=== PATIENT | male | born 1980 | race Two or more races ===

== ENCOUNTER 2024-04-01 10:59 | Emergency (ER) | payer MEDICAID, SELFPAY ==
[2024-04-01 11:10] VITALS: BP 132/86; PULSE 74; O2SAT 97
[2024-04-01 11:13] VITALS: BP 151/104; PULSE 78; RESP 18; TEMP 36.9; O2SAT 94; BMI 41.3
--- NOTE | 2024-04-01 11:28 | ED_ITS ---
HPI - General Adult General Chief complaint: Psychiatric Symptoms Stated complaint: SI NO PLAN Time Seen by Provider: 04/01/24 11:27 Source: patient and EMS Mode of arrival: EMS Limitations: no limitations History of Present Illness ED Provider: Hanny Dey PA-C HPI narrative: Patient is a 43 year old assigned male at with a history of depression, anxiety, and PTSD presenting to the emergency department today with suicidal and homicidal ideation. Patient states that yesterday he made comments about hurting himself including by overdose and possibly hurting his brother. Patient states that he does not have those thoughts / feelings today. Patient denies any dizziness, lightheadedness, abdominal pain, nausea, vomiting, fever, chills, blurry vision, double vision, loss of vision, chest pain, difficulty breathing, shortness of breath, back pain, night sweats, pain with urination, increased urinary frequency, increased urinary urgency, blood in his urine or stool, syncope or a near syncopal episode, recent trauma or falls, bowel incontinence, bladder incontinence, or any other complaints at this time. Relieving factors: none Exacerbating factors: none Associated symptoms: denies other symptoms Treatments prior to arrival: none Related Data Home Medications ?Medication ?Instructions ?Recorded ?Confirmed atorvastatin 10 mg tablet 10 mg PO BEDTIME 04/01/24 04/01/24 clonazepam 1 mg tablet 1 mg PO TID 04/01/24 04/01/24 emtricitabine 200 mg-tenofovir 1 tab PO DAILY 04/01/24 04/01/24 disoproxil fumarate 300 mg tablet fluoxetine 20 mg capsule 60 mg PO DAILY 04/01/24 04/01/24 pantoprazole 40 mg tablet,delayed 40 mg PO QAM 04/01/24 04/01/24 release quetiapine 25 mg tablet 25 mg PO BEDTIME 04/01/24 04/01/24 Allergies Allergy/AdvReac Type Severity Reaction Status Date / Time No Known Allergies Allergy Verified 04/01/24 11:18 Review of Systems 2 Constitutional: Constitutional: Reports no additional constitutional complaints, Denies chills, Denies fever(s) and Denies night sweats Eyes: Eyes: Reports no additional eye complaints, Denies blurry vision, Denies change in vision, Denies diplopia, Denies eye discharge, Denies loss of vision and Denies eye pain ENT: Denies dizziness Cardiovascular: Cardiovascular: Reports no additional cardiovascular complaints, Denies chest pain, Denies lightheadedness, Denies Loss of Consciousness and Denies dyspnea Respiratory: Respiratory: Reports no additional respiratory complaints and Denies dyspnea Gastrointestinal: Gastrointestinal: Reports no additional gastrointestinal complaints, Denies abdominal pain, Denies melena, Denies hematochezia, Denies change in bowel habits and Denies change in stool character Genitourinary: Genitourinary: Reports no additional male genitourinary complaints, Denies hematuria, Denies oliguria, Denies difficulty urinating, Denies dysuria, Denies urinary frequency, Denies urinary hesitancy, Denies urinary incontinence and Denies urinary urgency Musculoskeletal: Musculoskeletal: Reports no additional musculoskeletal complaints, Denies numbness and Denies tingling Neurologic: Denies dizziness, Denies loss of vision, Denies numbness and Denies tingling Psychiatric: Psychiatric: Reports homicidal ideation (now resolved) and Reports suicidal ideation (now resolved) Endocrine: Endocrine: Reports no additional endocrine complaints Hematologic/Lymphatic: Hematologic/Lymphatic: Reports no additional hematologic/lymphatic complaints Allergic/Immunologic: Allergic/Immunologic: Reports no additional allergic/immunologic complaints [facility] Past Medical History Attestation statement: The following information was validated with the patient. Source: old records reviewed and nursing notes reviewed Social History Social History Smoked in Last 30 Days: Yes Use of substances other than those prescribed or required for medical reasons: Yes Substance Use Type: Marijuana Advance Directives: No Do you have a plan to hurt others: Vague Physical Exam ED Vital Signs: Vital Signs - 24 hr 04/01/24 11:13 04/01/24 16:56 04/02/24 04:39 Temperature 98.4 F 97.0 F Pulse Rate 78 70 Respiratory Rate 18 18 18 Blood Pressure 151/104 H 116/72 Pulse Oximetry 94 95 Oxygen Delivery Method Room Air Room Air Room Air BMI result Body Mass Index 41.3 Const General: cooperative, no acute distress, alert and awake Nutritional Appearance: well nourished Orientation/consciousness: patient oriented x3 Limitations: no limitations HENMT Head: Yes normal to inspection and Yes atraumatic Ears: hearing grossly normal bilaterally and external ears normal General nose exam: Normal external nose present, no nasal discharge noted and no epistaxis Face and sinus: Yes normal facial exam, No abrasion and No laceration Mouth: Normal oral and palatal mucosa present, no drooling and no muffled voice Eyes General: appearance normal, both eyes and all related structures Periorbital: periorbital findings normal Eyelids: Yes eyelids normal Conjunctivae: conjunctivae normal Pupils: Equal, round and reactive pupils present EOM: EOMs intact bilaterally Neck Neck: Yes normal visual inspection, Yes full ROM and Yes no lymphadenopathy Chest Chest palpation & inspection: normal inspection of the chest Resp Effort & Inspection: normal respiratory effort and able to speak in complete sentences GI Inspection: Yes normal to inspection Neuro General: patient oriented x3 and moves all extremities Cranial nerves: Yes Equal, round and reactive pupils present Cognition (Neuro): normal cognition Extrem General: Yes normal to inspection, Yes full ROM and Yes capillary refill normal Psych Appearance: grossly normal Mental Status: mental status grossly normal Affect: normal affect Attitude: cooperative Thought process: Normal thought process present Thought content: Normal thought content present Insight: Good insight present (Psych) Medications Administered Generic Name Dose Route Start Last Admin Trade Name Freq PRN Reason Stop Dose Admin Atorvastatin Calcium 10 mg 04/01/24 21:00 04/01/24 20:48 Atorvastatin Calcium 10 Mg Tablet PO 10 mg BEDTIME BRADY Administration Clonazepam 1 mg 04/01/24 21:00 04/01/24 20:48 Clonazepam 1 Mg Tablet PO 1 mg TID BRADY Administration Quetiapine Fumarate 25 mg 04/01/24 21:00 04/01/24 20:48 Quetiapine Fumarate 25 Mg Tablet PO 25 mg BEDTIME BRADY Administration Discontinued Medications Generic Name Dose Route Start Last Admin Trade Name Freq PRN Reason Stop Dose Admin Diphenhydramine HCl 25 mg 04/01/24 14:05 04/01/24 14:08 Diphenhydramine Hcl 25 Mg Capsule PO 04/01/24 14:06 25 mg ONCE ONE Administration Lorazepam 1 mg 04/01/24 12:30 04/01/24 12:34 Lorazepam 1 Mg Tablet PO 04/01/24 12:31 1 mg ONCE ONE Administration Olanzapine 5 mg 04/01/24 12:30 04/01/24 12:34 Olanzapine 5 Mg Tablet PO 04/01/24 12:31 5 mg ONCE ONE Administration Medical Decision Making Medical Decision Making MDM Narrative: Patient is a 43 year old assigned male at with a history of PTSD, depression, and anxiety presenting to the emergency department today with HI and SI thoughts yesterday. Patient's physical exam was unremarkable. Patient's blood work was unremarkable. I explained my physical exam findings as well as all test results to the patient. I answered all questions asked by the patient. Patient was given PO Benadryl for his itchy mosquito bites. Patient's disposition will be determined after CARE evaluation. 05:26: I spoke with the care team, patient is voluntarily, not on a Section 12. Respite was recommended. Patient no longer wants to go and is demanding to be discharged. Patient denies SI or HI Differential Diagnosis Differential Diagnoses: The differential diagnosis associated with the presentation includes SI HI Crisis Admission/Observation Consideration of admission/observation: Escalation of care including admission/observation considered Patient's disposition will be determined after CARE team evaluation. Lab Data [facility] Lab Attestation statement: I reviewed the patient's lab results. My interpretation of these results are in the [facility] Rationale portion of this note. 04/01/24 12:36 04/01/24 12:36 Labs: Lab Results 04/01/24 04/01/24 04/01/24 Range/Units 11:30 12:36 15:41 WBC 6.4 (4.8-10.8) X10*3/uL RBC 5.22 (4.60-5.80) X10*6/uL Hgb 16.6 (14.0-18.0) g/dl Hct 48.1 (42.0-52.0) % MCV 92.1 (80.0-98.0) fL MCH 31.8 (27.0-33.0) pg MCHC 34.5 (31.0-36.0) g/dl RDW 13.9 (11.0-16.0) % Plt Count 199 (160-400) X10*3/uL MPV 9.9 (9.4-12.4) fL Immature Gran % (Auto) 0.2 (0.0-0.4) % Neut % (Auto) 57.4 (45-73) % Lymph % (Auto) 31.4 (20-40) % Mayes % (Auto) 8.5 (2-11) % Eos % (Auto) 2.0 (0-4) % Baso % (Auto) 0.5 (0-2) % Lymph # (Auto) 2.0 (1.2-4.9) X10*3/uL Mayes # (Auto) 0.6 (0.1-1.2) X10*3/uL Eos # (Auto) 0.1 (0.0-0.4) X10*3/uL Baso # (Auto) 0.0 (0.0-0.2) X10*3/uL Abs Immat Gran (auto) 0.01 (0.00-0.03) X10*3/uL Absolute Neuts (auto) 3.7 (2.0-8.3) x10*3/uL Absolute Nucleated RBC 0.000 (0.0-0.012) X10*3/uL Nucleated RBC % (auto) 0.0 (0.0-0.2) /100WBC Sodium 140 (135-145) mmol/L Potassium 4.1 (3.3-5.1) mmol/L Chloride 106 (96-108) mmol/L Carbon Dioxide 25 (22-29) mmol/L Anion Gap 13 (12-20) BUN 9 (9-16) mg/dL Creatinine 1.14 (0.5-1.4) mg/dL Estim Creat Clear Calc 109.0 Estimated GFR > 60 Random Glucose 96 (60-115) mg/dL Calcium 9.8 (8.4-10.2) mg/dL Total Bilirubin 0.4 (0.0-1.0) mg/dL AST 24 (5-37) U/L ALT 32 (0-40) U/L Alkaline Phosphatase 111 (39-117) U/L Total Protein 8.5 H (6.5-8.0) g/dL Albumin 4.8 (3.5-5.0) g/dL Urine Color Dark Yellow Urine Appearance Clear Urine pH 5.5 (5.0-9.0) Ur Specific [place] >= 1.030 H (1.005-1.025) Urine Protein Trace (Neg-Trace) mg/dL Urine Glucose (UA) Negative (Negative) mg/dL Urine Ketones Trace (Negative) mg/dL Urine Blood Negative (Negative) Urine Nitrite Negative (Negative) Ur Leukocyte Esterase Negative (Negative) Salicylates < 5.0 L (15-30) mg/dL Urine Opiates Screen Not Detected (Not Detect) Ur Buprenorphine Scrn Not Detected (Not Detect) ng/mL Ur Oxycodone Screen Not Detected (Not Detect) ng/mL Urine Methadone Screen Not Detected (Not Detect) ng/mL Urine Fentanyl Screen Not Detected (Not Detect) Acetaminophen < 3 (<30) mcg/mL Ur Barbiturates Screen Not Detected (Not Detect) Ur Phencyclidine Scrn Not Detected (Not Detect) Ur Amphetamines Screen Not Detected (Not Detect) U Benzodiazepines Scrn Not Detected (Not Detect) Urine Cocaine Screen Not Detected (Not Detect) U Marijuana (THC) Screen POSITIVE H (Not Detect) Ethyl Alcohol < 10 mg/dL Influenza Type A (PCR) NEGATIVE (Negative) Influenza Type B (PCR) NEGATIVE (Negative) RSV RNA Qual (PCR) NEGATIVE (Negative) SARS-CoV-2 RNA (RT-PCR) NEGATIVE (Negative) Independent Historian Clinical information obtained from an independent historian. History obtained from or confirmed by: EMS (EMS provided additional history and confirmed the history provided by the patient.) Discharge Plan Discharge Clinical Impression: Depression Patient Disposition: Home, Self-Care Instructions: Depression (ED) Additional Instructions: Please follow-up with your primary care physician tomorrow. If you have any worsening or new symptoms, please return to the emergency room or call 911 Prescriptions: No Action quetiapine 25 mg tablet 25 mg PO BEDTIME atorvastatin 10 mg tablet 10 mg PO BEDTIME clonazepam 1 mg tablet 1 mg PO TID pantoprazole 40 mg tablet,delayed release (DR/EC) 40 mg PO QAM fluoxetine 20 mg capsule 60 mg PO DAILY emtricitabine-tenofovir (TDF) 200-300 mg tablet 1 tab PO DAILY Interventions: Markle-Suicide Risk Severity Scale Last Done: 04/01/24 14:02 Print Language: Chilean
[2024-04-01 11:51] LABS: Appearance Urine Clear; Color Urine Dark Yellow; Glucose Urine UA Negative (Negative); Leukocyte Esterase Urine Negative (Negative); Nitrite Urine Negative (Negative); PH 5.5 (5.0-9.0); Specific Gravity - Urine >= 1.030 (1.005-1.025); Urine Blood Negative (Negative); Urine Ketones Trace mg/dL (Negative); Urine Protein Trace mg/dL (Neg-Trace)
[2024-04-01 12:00] LABS: Amphetamine Screen Urine Not Detected (Not Detect); Barbiturates, Urine Not Detected (Not Detect); Benzodiazepines Screen Urine Not Detected (Not Detect); Buprenorphine Scr Not Detected (Not Detect); Cannabinoid Screen Urine POSITIVE (Not Detect); Cocaine Screen Urine Not Detected (Not Detect); Fentanyl, urine Not Detected (Not Detect); Methadone Screen, Urine Not Detected (Not Detect); Opiate Screen Urine Not Detected (Not Detect); Oxycodone Screen Urine Not Detected (Not Detect); Phencyclidine Screen Urine Not Detected (Not Detect)
[2024-04-01] MEDS: LORazepam 1 MG TABLET PO (12:34)
[2024-04-01] MEDS: OLANZapine 5 MG TABLET PO (12:34)
--- NOTE | 2024-04-01 12:35 | PC.NURSE ---
Pt presents to ED via EMS, [place] outpatient called to alert [facility] that pt was coming in due to SI w/ plan to OD and also thoughts of harming his brother. Pt is alert and oriented, breathing even and unlabored, skin warm and dry. Denies any pain, reports mosquito bites on his arms and abdomen are bothering him. Reports he had feelings of SI and HI yesterday but is vague about them today. Calm and cooperative
[2024-04-01 12:39] LABS: MANUAL DIFF FLAG NO
[2024-04-01 12:41] LABS: Basophils Percent Auto 0.5 % (0-2); Eosinophils Absolute Auto 0.1 X10*3/uL (0.0-0.4); Hematocrit 48.1 % (42.0-52.0); Hemoglobin 16.6 g/dl (14.0-18.0); Imm Gran Abs Auto 0.01 X10*3/uL (0.00-0.03); Imm Gran Pct Auto 0.2 % (0.0-0.4); Lymphocytes Percent Auto 31.4 % (20-40); Mean Corpuscular HGB Conc 34.5 g/dl (31.0-36.0); Mean Corpuscular Hemoglobin 31.8 pg (27.0-33.0); Mean Corpuscular Volume 92.1 fL (80.0-98.0); Mean Platelet Volume 9.9 fL (9.4-12.4); Monocytes Absolute Auto 0.6 X10*3/uL (0.1-1.2); Monocytes Percent Auto 8.5 % (2-11); Neutrophils Absolute Auto 3.7 x10*3/uL (2.0-8.3); Neutrophils Percent Auto 57.4 % (45-73); Platelet Count 199 X10*3/uL (160-400); Red Blood Count 5.22 X10*6/uL (4.60-5.80); Red Cell Distribution Width 13.9 % (11.0-16.0); White Blood Count 6.4 X10*3/uL (4.8-10.8)
[2024-04-01 13:05] LABS: Acetaminophen LAB < 3 mcg/mL (<30); Salicylate < 5.0 mg/dL (15-30)
--- NOTE | 2024-04-01 13:05 | PC.NURSE ---
Pt reports feeling anxious, can't sleep. Pt very calm and cooperative, agrees to PO meds. Provider aware and medicated per MAR. Will continue to monitor.
[2024-04-01 13:06] LABS: Alanine Aminotransferase 32 U/L (0-40); Albumin Level 4.8 g/dL (3.5-5.0); Alkaline Phosphatase 111 U/L (39-117); Anion Gap 13 (12-20); Aspartate Amino Transferase 24 U/L (5-37); Bilirubin Total 0.4 mg/dL (0.0-1.0); Blood Urea Nitrogen 9 mg/dL (9-16); Calcium 9.8 mg/dL (8.4-10.2); Carbon Dioxide 25 mmol/L (22-29); Chloride 106 mmol/L (96-108); Estimated Glomerular Filt Rate > 60; Ethanol < 10 mg/dL; Glucose Random 96 mg/dL (60-115); Potassium 4.1 mmol/L (3.3-5.1); Sodium 140 mmol/L (135-145); Total Protein 8.5 g/dL (6.5-8.0)
--- OUTSIDE RECORDS SUMMARY | 2024-04-01 13:20 | XMS_ITS | Continuity of Care Document ---
Author Organization [facility] ter Address [address] [place] [id number]- Care Team Providers Care Tightener Name Role Phone Ezequiel Stanton DO Primary Care Physician Encounter [facility] Date(s): 02/23/24 - 02/24/[address] [id number]- Encounter Diagnosis Suicidal ideation(Final) - 02/24/24 Anxiety(Final) - 02/24/24 Depressed(Final) - 02/24/24 Discharge Disposition: A-D/C Home Attending Physician: Salas Kathleen MD Admitting Physician: Salas Kathleen MD Referring Physician: Not on Staff, Referring MD Allergies, Adverse Reactions, Alerts No Known Medication Allergies Substance Reaction Severity Status Pet Dander Active Immunizations Given and Recorded Vaccine Date Status Refusal Reason smallpox and monkeypox vaccine 06/26/23 Recorded smallpox and monkeypox vaccine 05/20/23 Recorded tetanus/diphtheria/pertussis, acel(Tdap) 05/01/22 Recorded SARS-CoV-2 (COVID-19) mRNA-1273 vaccine 01/15/21 R ecorded SARS-CoV-2 (COVID-19) mRNA-1273 vaccine 12/13/20 R ecorded pneumococcal 23-valent vaccine 11/29/19 Given influenza virus vaccine, inactivated 08/15/14 Billy rded Medications busPIRone 30 mg oral tablet 1 tablet = 30 mg, By Mouth, 2 times a day, # 180 tablet, 0 Refills, Maintenance, 12/11/23 3:55:00 EDT, Tablet, Partial fill upon patient request if the prescription is for a schedule II opioid drug. Start Date: 12/11/23 Status: Ordered clonazePAM 1 mg oral tablet 1 tablet = 1 mg, By Mouth, 3 times a day, 1 tab am and pm, then once prn, 0 Refills, Maintenance, 04/20/20 19:53:00 EDT, Tablet Start Date: 04/20/20 Status: Ordered dicyclomine 10 mg oral capsule 2 capsule = 20 mg, By Mouth, 4 times a day, May take as needed up to 4 times a day for abdominal pain/cramping, # 240 capsule, 0 Refills, Maintenance, 12/23/23 9:49:00 EDT, [id number], Partial fill upon patient request if the prescription i... Start Date: 12/23/23 Status: Ordered FLUoxetine 60 mg oral tablet 1 tablet = 60 mg, By Mouth, Daily in AM, # 30 tablet, 0 Refills, Maintenance, 09/18/20 11:00:00 EST, Tablet, [id number], Partial fill upon patient request if the prescription is for a schedule II opioid drug., 175, cm, 09/18/20 10:44:00 EST... Start Date: 09/18/20 Status: Ordered Protonix 40 mg oral delayed release tablet = 40 mg, By Mouth, Daily before breakfast, ok to substitute for another daily PPI based on cost., #30 capsule, 1 Refills, Maintenance, 12/11/23 10:33:00 EDT, EC Tablet, 175, cm, 12/11/23 7:09:00 EDT, Height, 134, kg, 12/11/23 5:45:00 EDT, Dry Weight Start Date: 12/11/23 Stop Date: 02/09/24 Status: Ordered QUEtiapine 25 mg oral tablet 25 mg, 1, tablet, By Mouth, Daily at bedtime, # 30 tablet, Refills 0, Maintenance, 12/11/23 3:55:00EDT, Partial fill upon patient request if the prescription is for a schedule II opioid drug. Start Date: 12/11/23 Status: Ordered Problem List Condition Confirmation Course Effective Dates Status Health St atus Informant COVID-19 1 Confirmed 12/17/21 Active GERD (gastroesophageal reflux disease) Confirmed Active Anxiety and depression Confirmed Active PTSD (post-traumatic stress disorder) Confirmed Active Severe obesity Confirmed Active Fatty liver Confirmed Active Suicide attempt Confirmed Active Hernia, umbilical Confirmed Active 1Problem added by Discern Expert Vital Signs Most recent to oldest [Reference Range]: 1 2 3 Oxygen Saturation [94-100 %] 97 % (02/24/24 7:51 AM) 98 % (02/24/24 2:36 AM) 95 % (02/24/24 12:03 AM) Pulse Rate [55-90 bpm] 73 bpm (02/24/24 7:51 AM) 70 bpm (02/24/24 2:36 AM) 83 bpm (02/24/24 12:03 AM) Blood Pressure [90-138/55-84 mm Hg] 135/97mm Hg (02/24/24 7:51 AM) 112/76mm Hg (02/24/24 2:36 AM) 124/88mm Hg (02/24/24 12:03 AM) Respiratory Rate [16-30 br/min] 16 br/min (02/24/24 7:51 AM) 20 br/min (02/24/24 2:36 AM) 17 br/min (02/24/24 12:03 AM) Temperature [96.8-100.4 DegF] 97.9 DegF (02/24/24 7:51 AM) 97.5 DegF (02/24/24 2:36 AM) 98.6 DegF (02/24/24 12:03 AM) Mode of Delivery (Oxygen) Room air (02/24/24 7:51 AM) Room air (02/24/24 2:36 AM) Room air (02/24/24 12:03 AM) Blood pressure sites Arm, right (02/24/24 2:36 AM) Arm, right (02/24/24 12:03 AM) Temperature Route Oral (02/24/24 7:51 AM) Oral (02/24/24 2:36 AM) Oral (02/24/24 12:03 AM) Social History Social History Type Response Tobacco Use: 4 or less cigar ettes(less than 1/4 pack)/day in last 30 days. Type: Cigarettes. Sex Note * Hever MATHIS, Salas Stahl: VERIFY, PERFORM, SIGN Event Display: Patient Education Handout Authored Date: Patient Care team information Care Team Personnel Name: Delfino SHEA, Ligia Baron Position: [facility] RN Member Role: Primary Care Nurse Name: Ezequiel Stanton DO Position: [facility] Physician (General Medicine) Member Role: PCP Address: Address: [address] [place] [id number]- Care Team Related Persons Name: APOORVA MAI Address: home [address] [place] [id number] Name: ZOE MAI Address: [place] [address] [id number]
--- OUTSIDE RECORDS SUMMARY | 2024-04-01 13:20 | XMS_ITS | Continuity of Care Document ---
Author Organization [facility] Address [address] [place] [address]- Care Team Providers Care Park Naturalist Name Role Phone Edgard Hernandez MD Primary Care Physician Encounter [facility] Date(s): 08/17/20 - 09/16/20 [facility] [address] [place] [id number]- Attending Physician: Nomi Lama Admitting Physician: AdmtrNomi Referring Physician: Admtr [id number] Allergies, Adverse Reactions, Alerts Substance Reaction Severity Status Pet Dander Active Immunizations Given and Recorded Vaccine Date Status Refusal Reason pneumococcal 23-valent vaccine 11/29/19 Given Medications busPIRone 5 mg oral tablet Refills 0, Maintenance, 09/12/20 20:43:00 EST, Partial fill upon patient request if the prescription is for a schedule II opioid drug. Start Date: 09/12/20 Status: Ordered clonazePAM 1 mg oral tablet 1 tablet = 1 mg, By Mouth, 2 times a day, 0 Refills, Maintenance, 04/20/20 19:53:00 EDT, Tablet Start Date: 04/20/20 Status: Ordered famotidine 20 mg oral tablet Refills 0, Maintenance, 09/12/20 20:43:00 EST, Partial fill upon patient request if the prescription is for a schedule II opioid drug. Start Date: 09/12/20 Status: Ordered famotidine 20 mg oral tablet 20 mg, 1, tablet, By Mouth, Daily at bedtime, # 30 tablet, Refills 1, Tot. Refills 1, Maintenance, 08/17/20 9:03:00 EST, Route to Pharmacy Electronically, [id number], Partial fill upon patient request if the prescription is for a schedule I... Start Date: 08/17/20 Status: Ordered FLUoxetine 20 mg oral capsule Refills 0, Maintenance, 09/12/20 20:43:00 EST, Partial fill upon patient request if the prescription is for a schedule II opioid drug. Start Date: 09/12/20 Status: Ordered FLUoxetine 60 mg oral tablet 1 tablet = 60 mg, By Mouth, Daily in AM, # 30 tablet, 0 Refills, Maintenance, 04/20/20 14:30:00 EDT, Tablet Start Date: 04/20/20 Status: Ordered hyoscyamine 0.125 mg oral tablet, disintegrating 1 tablet = 0.125 mg, By Mouth, 4 times a day, PRN as needed for spasm, # 40 tablet, 1 Refills, Maintenance, 08/17/20 9:02:00 EST, DIS Tablet, [id number], Partial fill upon patient request if the prescription is for a schedule II opioid drug... Start Date: 08/17/20 Status: Ordered KlonoPIN 1 mg oral tablet 0.5 tablet = 0.5 mg, By Mouth, 2 times a day, # 30 tablet, 0 Refills, Maintenance, 12/01/19 8:49:00EDT, Tablet Start Date: 12/01/19 Status: Ordered nitroglycerin 0.4 mg sublingual tablet 0 Refills, Maintenance, 09/12/20 20:43:00 EST, Partial fill upon patient request if the prescription is for a schedule II opioid drug. Start Date: 09/12/20 Status: Ordered omeprazole 20 mg oral enteric coated capsule 0 Refills, Maintenance, 09/12/20 20:43:00 EST, Partial fill upon patient request if the prescription is for a schedule II opioid drug. Start Date: 09/12/20 Status: Ordered Seroquel By Mouth, Refills 0, Maintenance, 07/14/20 15:14:00 EST, Partial fill upon patient request Start Date: 07/14/20 Status: Ordered sucralfate 1 gm oral tablet Refills 0, Maintenance, 09/12/20 20:43:00 EST, Partial fill upon patient request if the prescription is for a schedule II opioid drug. Start Date: 09/12/20 Status: Ordered Trazodone = 50 mg, By Mouth, Daily at bedtime, PRN Anxiety, 0 Refills, Maintenance, 04/20/20 14:31:00 EDT Start Date: 04/20/20 Status: Ordered Problem List Condition Effective Dates Status Health Status Inform ant Anxiety and depression(Confirmed) Active Suicide attempt(Confirmed) Active Social History Social History Type Response Smoking Status 5-9 cigarettes (betw een 1/4 to 1/2 pack)/day in last 30 days entered on: 09/12/20 Sex
--- OUTSIDE RECORDS SUMMARY | 2024-04-01 13:20 | XMS_ITS | Continuity of Care Document ---
Author Organization [facility] Address [address] [place] [address]- Care Team Providers Care Compliance Quality Performance Analyst Name Role Phone David MATHIS, Edgard Rios Primary Care Physician Encounter [facility] [place] Date(s): 04/03/23 - 05/03/23 [facility] [address] [place] [address]- Attending Physician: Nomi Lama Admitting Physician: AdmtrNomi Referring Physician: AdmtrNomi Allergies, Adverse Reactions, Alerts No Known Medication Allergies Substance Reaction Severity Status Pet Dander Active Immunizations Given and Recorded Vaccine Date Status Refusal Reason pneumococcal 23-valent vaccine 11/29/19 Given Medications acetaminophen-HYDROcodone 325 mg-5 mg oral tablet 1-2 tablet, By Mouth, Every 6 hours, PRN for pain, May partial fill [id number], # 16 tablet, 0 Refills, Maintenance, 04/14/23 16:35:00 EDT, Tablet, [facility], Partial fill upon patient request if the prescription is for a schedule II opio... Start Date: 04/14/23 Status: Ordered Benadryl 25 mg oral capsule 1 capsule = 25 mg, By Mouth, Daily at bedtime, PRN for insomnia, # 30 capsule, 0 Refills, Maintenance, 04/18/23 10:33:00 EDT, Capsule, Partial fill upon patient request if the prescription is for a schedule II opioid drug. Start Date: 04/18/23 Status: Ordered busPIRone 5 mg oral tablet 5 mg, 1, tablet, By Mouth, 2 times a day, # 60 tablet, Refills 0, Tot. Refills 0, Maintenance, 09/18/20 10:58:00 EST, Route to Pharmacy Electronically, [facility], Partial fill upon patient request if the prescription is for a schedule II o... Start Date: 09/18/20 Status: Ordered clonazePAM 1 mg oral tablet 1 tablet = 1 mg, By Mouth, 3 times a day, Takes 2mg am and 1mg pm, 0 Refills, Maintenance, 04/20/2019:53:00 EDT, Tablet Start Date: 04/20/20 Status: Ordered FLUoxetine 60 mg oral tablet 1 tablet = 60 mg, By Mouth, Daily in AM, # 30 tablet, 0 Refills, Maintenance, 09/18/20 11:00:00 EST, Tablet, [facility], Partial fill upon patient request if the prescription is for a schedule II opioid drug., 175, cm, 09/18/20 10:44:00 EST... Start Date: 09/18/20 Status: Ordered hydrOXYzine pamoate 50 mg oral capsule = 50 mg, By Mouth, Every 6 hours, PRN Anxiety, # 60 capsule, 0 Refills, Maintenance, 09/18/20 11:02:00 EST, Capsule, [facility], Partial fill upon patient request if the prescription is for a schedule II opioid drug., 175, cm, 09/18/20 10:4... Start Date: 09/18/20 Status: Ordered melatonin 3 mg oral tablet 1 tablet = 3 mg, By Mouth, Daily at bedtime, PRN Sleep, # 30 tablet, 0 Refills, Maintenance, 09/18/20 11:04:00 EST, Tablet, [facility], Partial fill upon patient request if the prescription is for a schedule II opioid drug., 175, cm, ... Start Date: 09/18/20 Status: Ordered omeprazole 40 mg oral enteric coated capsule 1 capsule, By Mouth, Daily, # 120 capsule, 0 Refills, Maintenance, 04/09/23 13:49:00 EDT, [facility], 175, cm, 04/03/23 13:11:00 EDT, Height, 132, kg, 04/01/23 19:38:00 EDT, Dry Weight Start Date: 04/09/23 Status: Ordered Problem List Condition Confirmation Course Effective Dates Status Health St atus Informant COVID-19 1 Confirmed 12/17/21 Active GERD (gastroesophageal reflux disease) Confirmed Active Anxiety and depression Confirmed Active Severe obesity Confirmed Active Fatty liver Confirmed Active Suicide attempt Confirmed Active Hernia, umbilical Confirmed Active 1Problem added by Discern Expert Social History Social History Type Response Tobacco Use: 4 or less cigar ettes(less than 1/4 pack)/day in last 30 days. Type: Cigarettes. Sex Patient Care team information Care Team Personnel Name: Delfino SHEA, Ligia Baron Position: S RN Member Role: Primary Care Nurse Name: David MATHIS, Edgard Rios Position: [facility] Physician - Primary Care Member Role: PCP Address: Address: [address] [place] [address], [address] [facility] [place] [address]- Care Team Related Persons Name: APOORVA MAI Address: home [address] [place] [address] Name: ZOE MAI Address: home [address] [place] [address]
--- OUTSIDE RECORDS SUMMARY | 2024-04-01 13:20 | XMS_ITS | Continuity of Care Document ---
Author Organization [facility] Address [address] [place] [address]- Care Team Providers Care Telecommunications Repairer Name Role Phone Edgard Hernandez MD Primary Care Physician Encounter [facility] Date(s): 01/06/22 - 01/06/[address] [address]- Encounter Diagnosis Anxiety and depression(Final) - 01/06/22 Discharge Disposition: A-D/C Home Attending Physician: Pop Nolen DO Admitting Physician: Pop Nolen DO Referring Physician: Not on Staff, Referring MD Allergies, Adverse Reactions, Alerts No Known Medication Allergies Substance Reaction Severity Status Pet Dander Active Immunizations Given and Recorded Vaccine Date Status Refusal Reason pneumococcal 23-valent vaccine 11/29/19 Given Medications acetaminophen 325 mg oral tablet 650 mg, 2, tablet, By Mouth, Once, PRN, # 12 tablet, Refills 0, Tot. Refills 0, Soft Stop, Pain , Moderate, 12/18/21 8:35:00 EDT, Route to Pharmacy Electronically, [facility], Partial fillupon patient request if the prescription is for a s... Start Date: 12/18/21 Status: Ordered busPIRone 5 mg oral tablet 5 mg, 1, tablet, By Mouth, 2 times a day, # 60 tablet, Refills 0, Tot. Refills 0, Maintenance, 09/18/20 10:58:00 EST, Route to Pharmacy Electronically, [facility], Partial fill upon patient request if the [...] 0 Refills, Maintenance, 09/18/20 11:00:00 EST, Tablet, [facility], Partial fill upon patient request if the prescription is for a schedule II opioid drug., gracy Kessler, 09/18/20 10:44:00 EST... Start Date: 09/18/20 Status: Ordered hydrOXYzine pamoate 50 mg oral capsule = 50 mg, By Mouth, Every 6 hours, PRN Anxiety, # 60 capsule, 0 Refills, Maintenance, 09/18/20 11:02:00 EST, Capsule, [facility], Partial fill upon patient request if the prescription is for a schedule II opioid drug., gracy Kessler, 09/18/20 10:4... Start Date: 09/18/20 Status: Ordered ibuprofen 400 mg oral tablet 400 mg, 1, tablet, By Mouth, Once, PRN, # 10 tablet, Refills 0, Tot. Refills 0, Soft Stop, Pain , Mild, 12/18/21 8:35:00 EDT, Route to Pharmacy Electronically, [facility], Partial fill upon patient request if the prescription is for a sched... Start Date: 12/18/21 Status: Ordered lidocaine 5% topical film See Instructions, Topically Once, # 5 patch, 0 Refills, Soft Stop, 12/18/21 8:34:00 EDT, Patch, [facility], Partial fill upon patient request if the prescription is for a schedule II opioid drug., Topically Once, gracy Kessler, 12/18/21 8:10:00 E... Start Date: 12/18/21 Status: Ordered melatonin 3 mg oral tablet 1 tablet = 3 mg, By Mouth, Daily at bedtime, PRN Sleep, # 30 tablet, 0 Refills, Maintenance, 09/18/20 11:04:00 EST, Tablet, [facility], Partial fill upon patient request if the prescription is for a schedule II opioid drug., gracy Kessler, ... Start Date: 09/18/20 Status: Ordered Protonix 40 mg oral delayed release tablet = 40 mg, By Mouth, Daily, # 30 capsule, 0 Refills, Maintenance, 09/18/20 11:02:00 EST, EC Tablet, 175, cm, 09/18/20 10:44:00 EST, Height, 126.81, kg, 09/13/20 18:09:00 EST, Dry Weight Start Date: 09/18/20 Status: Ordered SEROquel 25 mg oral tablet 25 mg, 1, tablet, By Mouth, Daily at bedtime, # 30 tablet, Refills 0, Tot. Refills 0, Maintenance, 09/18/20 11:01:00 EST, Route to Pharmacy Electronically, [facility], Partial fill upon patient request if the prescription is for a schedule... Start Date: 09/18/20 Status: Ordered sucralfate 1 gm oral tablet 1 Gm, 1, tablet, By Mouth, 3 times a day before meals and bedtime, # 120 tablet, Refills 0, Tot. Refills 0, Maintenance, 09/18/20 11:01:00 EST, Route to Pharmacy Electronically, [facility], Partial fill upon patient request if the prescript... Start Date: 09/18/20 Status: Ordered Problem List Condition Effective Dates Status Health Status Inform ant COVID-19(Confirmed) 1 12/17/21 Active Anxiety and depression(Confirmed) Active Severe obesity(Confirmed) Active Suicide attempt(Confirmed) Active 1Problem added by Discern Expert Vital Signs Most recent to oldest [Reference Range]: 1 2 Oxygen Saturation [94-100 %] 99 % (01/06/22 11:32 AM) 97 % (01/06/22 3:57 AM) Pulse Rate [55-90 bpm] 84 bpm (01/06/22 11:32 AM) 68 bpm (01/06/22 3:57 AM) Blood Pressure [90-138/55-84 mm Hg] 126/ 96mm Hg (01/06/22 11:32 AM) 129/83mm Hg (01/06/22 3:57 AM) Respiratory Rate [16-30 br/min] 16 br/mi n (01/06/22 11:32 AM) 20 br/min (01/06/22 3:57 AM) Temperature [96.8-100.4 DegF] 98.2 DegF (01/06/22 11:32 AM) 98.1 DegF (01/06/22 3:57 AM) Mode of Delivery (Oxygen) Room air (01/06/22 11:32 AM) Room air (01/06/22 3:57 AM) Blood pressure sites Arm, left (01/06/22 11:32 AM) Arm, right (01/06/22 3:57 AM) Temperature Route Oral (01/06/22 11:32 AM) Oral (01/06/22 3:57 AM) Social History Social History Type Response Smoking Status 5-9 cigarettes (betw een 1/4 to 1/2 pack)/day in last 30 days entered on: 09/12/20 Sex
--- OUTSIDE RECORDS SUMMARY | 2024-04-01 13:20 | XMS_ITS | Continuity of Care Document ---
Author Organization [facility] Address [address] [place] [address] Martin zuñiga, [address] [place] [address]- Care Team Providers Care Temp Recruiter Name Role Phone Ezequiel Stanton DO Primary Care Physician Encounter [facility] [place] Date(s): 12/30/23 - 01/29/24 [facility] [address] [place] [address] Drive [address] [place], [place] [address] Allergies, Adverse Reactions, Alerts No Known Medication [...] capsule, 0 Refills, Maintenance, 12/23/23 9:49:00 EDT, [facility], Partial fill upon patient request if the prescription i... Start Date: 12/23/23 Status: Ordered FLUoxetine 60 mg oral tablet 1 tablet = 60 mg, By Mouth, Daily in AM, # 30 tablet, 0 Refills, Maintenance, 09/18/20 11:00:00 EST, Tablet, [facility], Partial fill upon patient [...] Care team information Care Team Personnel Name: Ligia Saleh RN Position: [facility] RN Member Role: Primary Care Nurse Name: Ezequiel Stanton DO Position: [facility] Physician (General Medicine) Member Role: PCP Address: Address: [address] [place] [address]- Care Team Related Persons Name: APOORVA MAI Address: home [address] [place] [id number] Name: ZOE MAI Address: home [address] [place] [id number]
--- OUTSIDE RECORDS SUMMARY | 2024-04-01 13:20 | XMS_ITS | Continuity of Care Document ---
Author Organization [facility] Address [address] [place] [address] [address] zuñiga, [address] [place] [address]- Care Team Providers Care Underwater Hunter Trapper Name Role Phone Ezequiel Stanton DO Primary Care Physician En[place] [facility] Date(s): 12/26/23 - 01/25/24 [facility] [address] [place] [address] Drive [address] [place], [place] [address] Allergies, Adverse Reactions, Alerts No Known Medication [...] capsule, 0 Refills, Maintenance, 12/23/23 9:49:00 EDT, [facility], Partial fill upon patient request if the prescription i... Start Date: 12/23/23 Status: Ordered FLUoxetine 60 mg oral tablet 1 tablet = 60 mg, By Mouth, Daily in AM, # 30 tablet, 0 Refills, Maintenance, 09/18/20 11:00:00 EST, Tablet, [facility], Partial fill upon patient request [...] Team Personnel Name: Ligia Saleh RN Position: [facility] RN Member Role: Primary Care Nurse Name: Ezequiel Stanton DO Position: [facility] Physician (General Medicine) Member Role: PCP Address: Address: [address] [place] [address]- Care Team Related Persons Name: APOORVA MAI Address: home [address] [place] [address] Name: ZOE MAI Address: home [address] [place] [address]
[2024-04-01] MEDS: diphenhydrAMINE HCL 25 MG CAPSULE PO (14:08)
--- NOTE | 2024-04-01 14:43 | ECG_ITS ---
Test Reason : psych symptoms Blood Pressure : / mmHG Vent. Rate : 078 BPM Atrial Rate : 078 BPM P-R Int : 186 ms QRS Dur : 098 ms QT Int : 378 ms P-R-T Axes : 055 046 042 degrees QTc Int : 430 ms Normal sinus rhythm Normal ECG No previous ECGs available Referred By: Hanny Dey Electronically Signed By:AGATHA LEWIS MD
[2024-04-01 16:56] VITALS: BP 116/72; PULSE 70; RESP 18; TEMP 36.1; O2SAT 95
[2024-04-01 17:21] LABS: Influenza A PCR NEGATIVE (Negative); Influenza B PCR NEGATIVE (Negative); Resp Syncy Virus RNA Qual PCR NEGATIVE (Negative); SARS COV2 PCR INHOUSE NEGATIVE (Negative)
--- NOTE | 2024-04-01 19:43 | PC.NURSE ---
upon t/w's arrival patient seated in group area watvhing tv. patient appears in no distress, t/w asked client when he took last medications, patient appears in no distress
[2024-04-01] MEDS: clonazePAM 1 MG TABLET PO (20:48)
[2024-04-01] MEDS: Atorvastatin Calcium 10 MG TABLET PO (20:48)
[2024-04-01] MEDS: QUEtiapine Fumarate 25 MG TABLET PO (20:48)
--- NOTE | 2024-04-01 20:52 | MHC.CARE ---
Addendum entered by Vibha Laguna LCSW 04/01/24 21:00: Pt completed [facility] phone screening; [facility] reports that there in no bed availability today and to inquire about availability in the AM. [facility] confirms that they received Pt's referral and will discuss his case in the AM. Original Note: Pt is an [facility] bedsearch. Referral was faxed to [facility] and N. Pt currently completing the phone screening for [facility].
[2024-04-02 04:39] VITALS: RESP 18
--- NOTE | 2024-04-02 04:39 | PC.NURSE ---
patient irritable when redirected back to his room (early at 0430) patient grumbling and swearing then declined vital signs, in patient room.
--- NOTE | 2024-04-02 04:47 | PC.NURSE ---
patient seemed irritable and was self dialoguing in his room t/w approached client and asked about medications client responded i want to be left alone t/w closed door and left area.
[2024-04-02 05:32] VITALS: BP 133/80; PULSE 65; RESP 18; TEMP 37; O2SAT 98
== END 2024-04-02 05:33 | disposition home or self-care (01) ==
PROVIDERS: Physician Assistant Medical; Emergency Provider Student in an Organized Health Care Education/Training Program; PCP Internal Medicine
DX: F32.A Depression, unspecified (principal); R45.851 Suicidal ideations; R45.850 Homicidal ideations; Z03.818 Encounter for observation for suspected exposure to other biological agents ruled out; F41.9 Anxiety disorder, unspecified; F43.10 Post-traumatic stress disorder, unspecified; Z79.02 Long term (current) use of antithrombotics/antiplatelets; Z79.899 Other long term (current) drug therapy
CPT/HCPCS: 0241U; 80053; 80143; 80179; 80307; 81003; 85025; 93005; 99285; S9485

== ENCOUNTER → 2024-04-01 14:43 | Outpatient (BNV) | payer MEDICAID, SELFPAY | PROVIDERS: Emergency Provider Student in an Organized Health Care Education/Training Program; PCP Internal Medicine; Visit Provider Internal Medicine Cardiovascular Disease | DX: R45.851 Suicidal ideations (principal) | CPT/HCPCS: 93010 ==

== ENCOUNTER 2024-06-18 11:34 | Outpatient (AMB) | payer MEDICAID, SELFPAY ==
--- NOTE | 2024-06-18 11:38 | A.OFFVIS_ITS ---
Intake Visit Reasons: testicle mass Intake Note: Patient is present for Testicle Mass Was last seen by Dr Stern years ago Patient states he was told that nothing was found and no current complaints of any pain or discomfort Vinyl Welder And Fabricator Required: No Accompanied by: Self / Same As Patient Allergies No Known Allergies Allergy (Verified 06/18/24 11:43) HPI Comments Details: Gómez is a pleasant male. He is a patient of Dr. Stanton. He seen for the following urologic conditions - epididymal cyst Epididymal cyst Testicular ultrasound 6 mm cyst right epididymis Testicles normal Exam normal Reassurance provided Recommend primary care check PSA now at 45 and again at 50 given risk factor [facility] Medical History (Updated 06/18/24 @ 11:52 by Landon Stern MD) Mixed hyperlipidemia Nonspecific reaction to cell mediated immunity measurement of gamma interferon antigen response without active tuberculosis Morbid (severe) obesity due to excess calories Seborrheic dermatitis, unspecified Intentional self-harm by blunt object Chest pain Nicotine withdrawal Major depression Allergic rhinitis Borderline personality disorder Abdominal hernia Elevated ALT measurement Anxiety Social History Substance Use Type: Marijuana Review of Systems Const Denies chills and Denies fever(s) Card Reports no additional complaints and Denies syncope Resp Denies cough GI Denies abdominal pain and Denies heartburn Reports as per HPI and Denies change in libido Neuro Denies syncope Psych Denies change in libido Endo Denies change in libido Physical Exam Const General: cooperative, healthy appearing, comfortable and no acute distress Orientation/consciousness: patient oriented x3 HEENT Face and sinus: Yes normal facial exam Mouth: moist mucous membranes Neck Neck: Yes normal visual inspection, Yes full ROM and Yes trachea midline Chest Chest palpation & inspection: normal inspection of the chest Resp Effort & Inspection: normal respiratory effort, able to speak in complete sentences and no respiratory distress GI Inspection: Yes normal to inspection Back/Spine/Pelvis Cervical Spine: normal cervical lordosis Thoracic/Lumbar Spine: thoracic and lumbar spine normal to inspection Skin General skin exam: no rashes or lesions noted Neuro General: patient oriented x3, gait normal, tone normal and moves all extremities Extrem General: Yes normal to inspection and Yes capillary refill normal Assessment & Plan Assessment & Plan (1) Epididymal cyst: Code(s): N50.3 - Cyst of epididymis Category: Medical Plan Reassurance provided P.r.n. Patient Instructions: Imaging studies, laboratory and physical exam results were discussed and re viewed in detail. No major barriers to patient understanding were identified. An opportunity to ask questions regarding the treatment plan was provided. All questions were answered. The patient expressed understanding and agreement with the above treatment plan. The patient is aware they should contact our office by phone for worsening of their current condition or the appearance of new urologic symptoms. Compliance is encouraged with any medications and followup testing that is ordered. It is a privilege to participate in the urologic care of your patient. If you have any questions or concerns regarding treatment for the above conditions, or other urologic issues, please do not hesitate to contact me. The office telephone contact is [phone]. This note is constructed using voice recognition software. While every effort has been made to ensure accuracy machine design teacher errors may have been included. Yours sincerely, Dr Landon Stern MD, [facility] - Urology Providers of Expert, Compassionate Care for the Genitourinary System Coding Level of Care Code New Pt Level 3 (95270) Diagnoses Epididymal cyst N50.3
== END 2024-06-18 11:57 | disposition home or self-care (01) ==
PROVIDERS: PCP Internal Medicine; Visit Provider Urology
DX: N50.3 Cyst of epididymis (principal)
CPT/HCPCS: 99203

== ENCOUNTER → 2024-06-18 11:34 | Outpatient (BNVA) | payer MEDICAID, SELFPAY | PROVIDERS: PCP Internal Medicine; Visit Provider Urology | DX: N50.3 Cyst of epididymis (principal) | CPT/HCPCS: 99202 ==

== ENCOUNTER 2025-05-03 09:43 | Outpatient (AMB) | payer MEDICAID, SELFPAY ==
--- NOTE | 2025-05-03 10:17 | A.OFFVIS_ITS ---
Intake Visit Reasons: kidney stones Intake Note: patient presents today for: follow up urology medications: none blood thinners: none imaging done: 02/11/25 Order Administrator Required: No Accompanied by: Self / Same As Patient Allergies No Known Allergies Allergy (Verified 05/03/25 10:18) HPI Comments Details: Gómez is a pleasant male. He is a patient of Dr. Stanton. He seen for the following urologic conditions - epididymal cyst - nephrolithiasis Last seen 12 months ago At that point reassurance has been provided KUB small stones Epididymal cyst Testicular ultrasound 6 mm cyst right epididymis Testicles normal Exam normal Reassurance provided [facility] Medical History (Updated 05/03/25 @ 10:41 by Landon Stern MD) Mixed hyperlipidemia Nonspecific reaction to cell mediated immunity measurement of gamma interferon antigen response without active tuberculosis Morbid (severe) obesity due to excess calories Seborrheic dermatitis, unspecified Intentional self-harm by blunt object Chest pain Nicotine withdrawal Major depression Allergic rhinitis Borderline personality disorder Abdominal hernia Elevated ALT measurement Anxiety Social History Substance Use Type: Marijuana Review of Systems Const Denies chills and Denies fever(s) Card Reports no additional complaints and Denies syncope Resp Denies cough GI Denies abdominal pain and Denies heartburn Reports as per HPI and Denies change in libido Neuro Denies syncope Psych Denies change in libido Endo Denies change in libido Physical Exam Const General: cooperative, healthy appearing, comfortable and no acute distress Orientation/consciousness: patient oriented x3 HEENT Face and sinus: Yes normal facial exam Mouth: moist mucous membranes Neck Neck: Yes normal visual inspection, Yes full ROM and Yes trachea midline Chest Chest palpation & inspection: normal inspection of the chest Resp Effort & Inspection: normal respiratory effort, able to speak in complete sentences and no respiratory distress GI Inspection: Yes normal to inspection Back/Spine/Pelvis Cervical Spine: normal cervical lordosis Thoracic/Lumbar Spine: thoracic and lumbar spine normal to inspection Skin General skin exam: no rashes or lesions noted Neuro General: patient oriented x3, gait normal, tone normal and moves all extremities Extrem General: Yes normal to inspection and Yes capillary refill normal Assessment & Plan Assessment & Plan (1) Nephrolithiasis: Code(s): N20.0 - Calculus of kidney Category: Medical Plan Six-month follow-up imaging Orders: Orders XR KUB 05/03/25 N20.0 - Calculus of kidney US renal BI 6 Months N20.0 - Calculus of kidney Patient Instructions: This note is constructed using voice recognition software. While every effort has been made to ensure accuracy fruit express agent errors may have been included. Imaging studies, laboratory and physical exam results were discussed and reviewed in detail. No major barriers to patient understanding were identified. An opportunity to ask questions regarding the treatment plan was provided. All questions were answered. The patient expressed understanding and agreement with the above treatment plan. The patient is aware they should contact our office by phone for worsening of their current condition or the appearance of new urologic symptoms. Compliance is encouraged with any medications and followup testing that is ordered. It is a privilege to participate in the urologic care of your patient. If you have any questions or concerns regarding treatment for the above conditions, or other urologic issues, please do not hesitate to contact me. The office telephone contact is [phone]. Sincerely, Dr Landon Stern MD, [facility] - Urology Compassionate Specialist Care for the Genitourinary System Coding Level of Care Code Est Pt Level 4 (37673) Diagnoses Nephrolithiasis N20.0
--- OUTSIDE RECORDS SUMMARY | 2025-05-28 20:00 | XMS_ITS | Clinical Summary ---
Author Organization Unknown Care Team Providers Care Injection Mold Technician Name Role Phone ADAN END LATHE OPERATOR, FARHANA Unavailable Unavailable LILIANA SHEA, MJ Unavailable Unavailable Payers Payer Name Policy Type Policy Number Effective Date Expira tion Date MEDICAID [facility] [address] [id number] Problems Condition Name Condition Details Condition Category Status Onset Date Resolution Date Last Treatment Date Treating Clinician Comments MAJOR DEPRESSIVE DISORDER, RECURRENT, UNSPECIFIED Active 2023-08 00:00: 00 Allergies, Adverse Reactions, Alerts Allergy Name Allergy Type Status Severity Reaction(s) Onset Date Inactive Date Treating Clinician Comments NKA Propensity to adverse reactions Active 2024-07 13:28:0 8 Medications Ordered Medication Name Filled Medication Name Start Date Stop Date Current Medication? Ordering Clinician Indication Dosage Frequency Signature (SIG) Comments Components famotidine 20 mg tablet 2019-08 00:00: 00 09-18 23:59 :00 No [id number] Per instruc tions ONCE DAILY AT BEDTIME Per instructio ns ONCE DAILY AT BEDTIME (route: oral) Med Classific ation: Gastroint estinal Therapy Agents buspirone 5 mg tablet 09-19 00:00: 00 11-06 23:59 :00 No [id number] 5 mg 2 TIMES DAILY 5 mg 2 TIMES DAILY (route: oral) Med Classific ation: Central Nervous System Agents clonazepam 1 mg tablet 09-19 00:00: 00 11-06 23:59 :00 No [id number] 1 mg 2 TIMES DAILY 1 mg 2 TIMES DAILY (route: oral) Med Classific ation: Central Nervous System Agents fluoxetine 60 mg tablet 09-19 00:00: 00 07-27 23:59 :00 No [id number] 60 mg DAILY 60 mg DAILY (route: oral) Med Classific ation: Central Nervous System Agents hydroxyzine HCl 50 mg tablet 09-19 00:00: 00 11-06 23:59 :00 No [id number] 50 mg EVERY 6 HOURS 50 mg EVERY 6 HOURS (route: oral) Med Classific ation: Central Nervous System Agents melatonin 3 mg capsule 09-19 00:00: 00 11-26 23:59 :00 No [id number] 3 mg BEDTIME 3 mg BEDTIME (route: oral) Med Classific ation: Central Nervous System Agents nicotine (polacrilex ) 2 mg gum 09-19 00:00: 00 11-06 23:59 :00 No [id number] 2 mg NEEDED 2 mg NEEDED (route: buccal) Med Classific ation: Chemical Dependenc y, Agents to Treat pantoprazol e 40 mg tablet,vesta yed release 09-19 00:00: 00 09-11 23:59 :00 No [id number] 40 mg DAILY 40 mg DAILY (route: oral) Med Classific ation: Gastroint estinal Therapy Agents quetiapine 25 mg tablet 09-19 00:00: 00 11-26 23:59 :00 No [id number] 25 mg BEDTIME 25 mg BEDTIME (route: oral) Med Classific ation: Central Nervous System Agents sucralfate 1 gram tablet 09-19 00:00: 00 09-11 23:59 :00 No [id number] 1 g 3 TIMES DAILY 1 g 3 TIMES DAILY (route: oral) Med Classific ation: Gastroint estinal Therapy Agents buspirone 15 mg tablet 11-06 00:00: 00 11-26 23:59 :00 No [id number] 1 tablet 2 TIMES DAILY 1 tablet 2 TIMES DAILY (route: oral) Med Classific ation: Central Nervous System Agents clonazepam 1 mg tablet 11-06 00:00: 00 07-04 23:59 :00 No [id number] 1 tablet BEDTIME 1 tablet BEDTIME (route: oral) Med Classific ation: Central Nervous System Agents clonazepam 2 mg tablet 11-06 00:00: 00 07-04 23:59 :00 No [id number] 1 tablet EVERY AM 1 tablet EVERY AM (route: oral) Med Classific ation: Central Nervous System Agents lansoprazol e 30 mg capsule,del ayed release 11-23 00:00: 00 09-11 23:59 :00 No [id number] 1 capsule DAILY 1 capsule DAILY (route: oral) Med Classific ation: Gastroint estinal Therapy Agents omeprazole 40 mg capsule,del ayed release 18 00:00: 00 12-23 23:59 :00 No [id number] 1 capsule DAILY 1 capsule DAILY (route: oral) Med Classific ation: Gastroint estinal Therapy Agents Benadryl Allergy 25 mg tablet 11-26 00:00: 00 12-23 23:59 :00 No [id number] 1 tablet BEDTIME 1 tablet BEDTIME (route: oral) Med Classific ation: Respirato ry Therapy Agents buspirone 10 mg tablet 11-26 00:00: 00 12-23 23:59 :00 No [id number] 2 tablet 2 TIMES DAILY 2 tablet 2 TIMES DAILY (route: oral) Med Classific ation: Central Nervous System Agents melatonin 10 mg capsule 11-26 00:00: 00 01-07 23:59 :00 No [id number] 1 capsule BEDTIME 1 capsule BEDTIME (route: oral) Med Classific ation: Central Nervous System Agents clonazepam 1 mg tablet 2022-08 00:00: 00 07-27 23:59 :00 No [id number] 1 tablet 3 TIMES DAILY 1 tablet 3 TIMES DAILY (route: oral) Med Classific ation: Central Nervous System Agents buspirone 30 mg tablet 12-23 00:00: 00 07-27 23:59 :00 No [id number] 30 mg 2 TIMES DAILY 30 mg 2 TIMES DAILY (route: oral) Med Classific ation: Central Nervous System Agents emtricitabi ne 200 mg-tenofovi r disoproxil fumarate 300 mg tablet - 00:00: 00 07-27 23:59 :00 No [id number] 1 tablet DAILY 1 tablet DAILY (route: oral) Med Classific ation: Anti-Infe ctive Agents Protonix 40 mg tablet,vesta yed release 12-23 00:00: 00 07-27 23:59 :00 No [id number] 40 mg DAILY 40 mg DAILY (route: oral) Med Classific ation: Gastroint estinal Therapy Agents atorvastati n 10 mg tablet 01-07 00:00: 00 07-27 23:59 :00 No [id number] 10 mg BEDTIME 10 mg BEDTIME (route: oral) Med Classific ation: Cardiovas cular Therapy Agents quetiapine 25 mg tablet 01-07 00:00: 00 07-27 23:59 :00 No [id number] 25 mg BEDTIME 25 mg BEDTIME (route: oral) Med Classific ation: Central Nervous System Agents atorvastati n 10 mg tablet 2023-08 00:00: 00 Yes [id number] 10 mg BEDTIME 10 mg BEDTIME (route: oral) Med Classific ation: Cardiovas cular Therapy Agents buspirone 5 mg tablet 2023-08 2- 00:00: 00 04-13 23:59 :00 No [id number] 1 tablet DAILY 1 tablet DAILY (route: oral) Med Classific ation: Central Nervous System Agents clonazepam 1 mg tablet 2023-08 2- 00:00: 00 04-13 23:59 :00 No [id number] Per instruc tions 2 TIMES DAILY Per instructio ns 2 TIMES DAILY (route: oral) Med Classific ation: Central Nervous System Agents fluoxetine 20 mg capsule 2023-08 2-10 00:00: 00 10-18 23:59 :00 No [id number] 60 mg DAILY 60 mg DAILY (route: oral) Med Classific ation: Central Nervous System Agents Protonix 40 mg granules delayed-rel ease packet 2023-08 2-10 00:00: 00 Yes [id number] 40 mg DAILY 40 mg DAILY (route: oral) Med Classific ation: Gastroint estinal Therapy Agents quetiapine 25 mg tablet 2023-08 2-10 00:00: 00 04-13 23:59 :00 No [id number] 1 tablet BEDTIME 1 tablet BEDTIME (route: oral) Med Classific ation: Central Nervous System Agents Truvada 100 mg-150 mg tablet 2023-08 2-10 00:00: 00 Yes [id number] 1 tablet DAILY 1 tablet DAILY (route: oral) Med Classific ation: Anti-Infe ctive Agents Prozac 20 mg capsule 2-24 00:00: 00 04-13 23:59 :00 No [id number] 80 mg DAILY 80 mg DAILY (route: oral) Med Classific ation: Central Nervous System Agents buspirone 10 mg tablet 04-13 00:00: 00 Yes [id number] 20 mg 3 TIMES DAILY 20 mg 3 TIMES DAILY (route: oral) Med Classific ation: Central Nervous System Agents clonazepam 1 mg tablet 04-13 00:00: 00 Yes [id number] 1 mg 3 TIMES DAILY 1 mg 3 TIMES DAILY (route: oral) Med Classific ation: Central Nervous System Agents diclofenac 1 % topical gel 04-13 00:00: 00 Yes [id number] Per instruc tions NEEDED Per instructio ns NEEDED (route: topical) Med Classific ation: Dermatolo gical fluoxetine 60 mg tablet 04-13 00:00: 00 Yes [id number] 60 mg DAILY 60 mg DAILY (route: oral) Med Classific ation: Central Nervous System Agents hydroxyzine HCl 50 mg tablet 04-13 00:00: 00 Yes [id number] 50 mg 2 TIMES DAILY 50 mg 2 TIMES DAILY (route: oral) Med Classific ation: Central Nervous System Agents melatonin 3 mg tablet 04-13 00:00: 00 Yes [id number] 3 mg BEDTIME 3 mg BEDTIME (route: oral) Med Classific ation: Central Nervous System Agents nystatin 100,000 unit/gram topical powder 04-13 00:00: 00 Yes [id number] Per instruc tions 2 TIMES DAILY Per instructio ns 2 TIMES DAILY (route: topical) Med Classific ation: Dermatolo gical trazodone 50 mg tablet 5-0 8-20 00:00: 00 Yes [id number] 50 mg BEDTIME 50 mg BEDTIME (route: oral) Med Classific ation: Central Nervous System Agents Plan of Treatment Planned Activity Planned Date Details Comments Future Scheduled Test SKILLED NU RSE TO EVALUATE PATIENT, IDENTIFY PRIMARY AND CO-MORBID CONDITIONS CODED PER CODING GUIDELINES, AND DEVELOP PATIENT SPECIFIC PLAN OF CARE THAT INCLUDES PATIENT GOAL FOR HOME HEALTH. [code = SKILLED NURSE TO EVALUATE PATIENT, IDENTIFY PRIMARY AND CO-MORBID CONDITIONS CODED PER CODING GUIDELINES, AND DEVELOP PATIENT SPECIFIC PLAN OF CARE THAT INCLUDES PATIENT GOAL FOR HOME HEALTH.] Future Scheduled Test SKILLED NU RSE TO PRE-POUR MEDICATION PER MEDICATION LIST (FREQUENCY). [code = SKILLED NURSE TO PRE-POUR MEDICATION PER MEDICATION LIST (FREQUENCY).] Future Scheduled Test PATIENT MA Y HAVE ONE SET OF EMERGENCY MEDICATION NOT TO BE PRE-POURED ANY SOONER THAN 24 HOURS BEFORE SEVERE INCLEMENT WEATHER OR EMERGENT EVENT AND FOLLOWING SKILLED NURSE EVALUATION OF PATIENT SAFETY. [code = PATIENT MAY HAVE ONE SET OF EMERGENCY MEDICATION NOT TO BE PRE-POURED ANY SOONER THAN 24 HOURS BEFORE SEVERE INCLEMENT WEATHER OR EMERGENT EVENT AND FOLLOWING SKILLED NURSE EVALUATION OF PATIENT SAFETY.] Future Scheduled Test SKILLED NU RSE TO O/A OF PATIENTS MENTAL/BEHAVIORAL STATUS, ASSESS VITAL SIGNS (FREQUENCY OF VS), ALLOW 2 PRNS FOR MEDICATION MANAGEMENT. [code = SKILLED NURSE TO O/A OF PATIENTS MENTAL/BEHAVIORAL STATUS, ASSESS VITAL SIGNS (FREQUENCY OF VS), ALLOW 2 PRNS FOR MEDICATION MANAGEMENT.] Future Scheduled Test SKILLED NU RSE FOR O/A OF GENERAL HEALTH STATUS OF PAIN, CARDIAC, RESPIRATORY, GASTROINTESTINAL, GENITOURINARY, SKIN, NEUROLOGIC, ENDOCRINE SYSTEMS TO IDENTIFY CHANGES ASSOCIATED WITH EXACERBATION FOR EARLY INTERVENTION OF COMPLICATIONS WEEKLY. [code = SKILLED NURSE FOR O/A OF GENERAL HEALTH STATUS OF PAIN, CARDIAC, RESPIRATORY, GASTROINTESTINAL, GENITOURINARY, SKIN, NEUROLOGIC, ENDOCRINE SYSTEMS TO IDENTIFY CHANGES ASSOCIATED WITH EXACERBATION FOR EARLY INTERVENTION OF COMPLICATIONS WEEKLY.] Future Scheduled Test SKILLED NU RSE FOR O/A AND SKILLED TEACHING RELATED TO MANAGEMENT OF DEPRESSIVE SYMPTOMS AND/OR DEPRESSION. SN TO REPORT SIGNIFICANT CHANGE IN DEPRESSIVE SYMPTOMS TO CLINICAL PROVIDER FOR EARLY INTERVENTION. [code = SKILLED NURSE FOR O/A AND SKILLED TEACHING RELATED TO MANAGEMENT OF DEPRESSIVE SYMPTOMS AND/OR DEPRESSION. SN TO REPORT SIGNIFICANT CHANGE IN DEPRESSIVE SYMPTOMS TO CLINICAL PROVIDER FOR EARLY INTERVENTION.] Future Scheduled Test SKILLED NU RSE TO ASSESS PATIENT S PSYCHOSOCIAL STATUS TO IDENTIFY POTENTIAL ISSUES THAT MAY COMPLICATE THE PROVISION OF THE PLAN OF CARE INCLUDING THE PATIENT S ABILITY TO ACCESS COMMUNITY RESOURCES AND PSYCHOSOCIAL SUPPORT SERVICES. [code = SKILLED NURSE TO ASSESS PATIENT S PSYCHOSOCIAL STATUS TO IDENTIFY POTENTIAL ISSUES THAT MAY COMPLICATE THE PROVISION OF THE PLAN OF CARE INCLUDING THE PATIENT S ABILITY TO ACCESS COMMUNITY RESOURCES AND PSYCHOSOCIAL SUPPORT SERVICES.] Future Scheduled Test SKILLED NU RSE WILL MAINTAIN SITUATIONAL AWARENESS FOR SAFETY AND WILL NOTIFY CLINICAL WOOD MILLING MACHINE TENDER AND PHYSICIAN/PROVIDER WITH ANY CHANGE IN CONDITION. [code = SKILLED NURSE WILL MAINTAIN SITUATIONAL AWARENESS FOR SAFETY AND WILL NOTIFY CLINICAL WOOD MILLING MACHINE TENDER AND PHYSICIAN/PROVIDER WITH ANY CHANGE IN CONDITION.] Goal 2024-09-30 Patient Goal - GET BACK ON T RACK Goal 2024-11-26 Patient Goal - GET BACK ON T RACK Goal 2025-01-28 Patient Goal - GET BACK ON T RACK Goal 2025-03-29 Patient Goal - GET BACK ON T RACK Goal Patient Goal - GET BACK ON T RACK Goal Provider Goal - A PLAN OF CARE WILL BE ESTABLISHED THAT MEETS PATIENT'S LONGTERM NEEDS AND INCLUDES PATIENT GOAL FOR HOME HEALTH. Goal Provider Goal - PATIENT WILL COMPLY WITH MEDICATION WHEN SKILLED NURSE PRE-POURS MEDICATION THROUGHOUT CERTIFICATION PERIOD. Goal Provider Goal - MEDICATION WILL BE AVAILABLE DURING INCLEMENT WEATHER OR EMERGENT EVENT THROUGHOUT CERTIFICATION PERIOD. Goal Provider Goal - ALTERED MENTAL/BEHAVIORAL STATUS WILL BE IDENTIFIED PROMPTLY AND INTERVENTION INITIATED QUICKLY TO MINIMIZE ASSOCIATED RISKS THROUGHOUT CERTIFICATION PERIOD. Goal Provider Goal - CHANGE IN GENERAL HEALTH STATUS WILL BE IDENTIFIED AND REPORTED TO PHYSICIAN FOR PROMPT INTERVENTION TO MINIMIZE ASSOCIATED RISKS THROUGHOUT CERTIFICATION PERIOD. Goal Provider Goal - PATIENT WILL REMAIN SAFE WITHOUT DECOMPENSATION IN DEPRESSIVE CONDITION, WHILE MAINTAINING OPTIMAL LEVEL OF MENTAL HEALTH AND WELL BEING THROUGHOUT CERTIFICATION PERIOD. Goal Provider Goal - PSYCHOSOCIAL NEEDS WILL BE IDENTIFIED AND PLAN IMPLEMENTED TO MINIMIZE RISK THROUGHOUT CERTIFICATION PERIOD. Goal Provider Goal - PATIENT WILL REMAIN SAFE IN THE COMMUNITY AND WILL BE FREE OF DANGER TO SELF AND OTHERS THROUGHOUT THE CERTIFICATION PERIOD. Progress Notes Progress Notes <paragraph>[Visit Date: 2024 by MJ FORD RN]:</paragraph><paragraph>PT IS ALERT AND ORIENTED X3. PT ON GROUP PEER SUPPORT CALL UPON ARRIVAL. PT COMPLIANT WITH MEDICATION REGIMEN EVIDENCED BY APPROPRIATE EMPTY MED BOX. MEDICATION SLEEVES PRE-POURED UNTIL NEXT VISIT. MOOD CALM, GOOD EYE CONTACT.</paragraph> Encounters Start Date/Time End Date/Time Encounter Type Admission Type Attending [facility] [place] Facility Care Department Encounter ID Discharge Date Discharge Status Discharge Condition Discharge Reason Percent Goals Met 2025-03-31 00:00:00 2025-05-29 00:00:00 Outpatient RECERTIFIC MJ RODRIGUEZ [facility] [id number] [id number]
== END 2025-05-03 12:13 | disposition home or self-care (01) ==
LOC: HO.HUSH 09:44
PROVIDERS: PCP Nurse Practitioner Primary Care; Visit Provider Urology
DX: N20.0 Calculus of kidney (principal)
CPT/HCPCS: 99214

== ENCOUNTER 2025-05-03 09:43 | Outpatient (REF) | payer MEDICAID, SELFPAY ==
--- NOTE | ~2025-05-03 | XR_ITS ---
EXAMINATION: XR ABDOMEN KUB CLINICAL INDICATION: N20.0 - Calculus of kidney COMPARISON: None available. TECHNIQUE: AP view of the abdomen. FINDINGS: 2.5 mm calcification overlapping the left kidney shadow. 2 mm calcifications overlapping the right kidney shadow. Patient's large body habitus. No air-fluid levels. No intestinal dilatation. 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 Spina bifida occulta, S1 and S2, congenital. XR/XR KUB IMPRESSION: Probable nephrolithiasis, bilaterally. Electronically signed by: Bartolo Haddad MD 05/03/2025 11:24 AM EDT
--- OUTSIDE RECORDS SUMMARY | 2025-05-03 13:03 | XMS_ITS | Clinical Summary ---
Author Organization [facility] Address [address] [place] [address] Care Team Providers Care Adult Health Clinical Nurse Specialist Name Role Phone Unavailable Primary Care Provider Unavailabl e Social History Tobacco Use Types Packs/Day Years Used Date Smoking Tobacco: Never Assessed Sex and Gender Information Value Date Recorded Sex Assigned at Not on file Legal Sex Male 8:17 PM EST Gender Identity Not on file Sexual Orientation Not on file Plan of Treatment Health Maintenance Due Date Last Done Comments DTaP,Tdap,and Td Vaccines (1 - Tdap) 1998 Hepatitis B Vaccines (1 of 3 - 19+ 3-dose series) 1998 COVID-19 Vaccine ( - 2023-2 5 season) 2024 Depression Screening 08/25/2024 Influenza Vaccine (#1) 2025 HIB Vaccines Aged Out No longer eligi ble based on patient's age to complete this topic HPV Vaccines Aged Out No longer eligi ble based on patient's age to complete this topic Hepatitis A Vaccines Aged Out No long er eligible based on patient's age to complete this topic IPV Vaccines Aged Out No longer eligi ble based on patient's age to complete this topic MMR Vaccines Aged Out No longer eligi ble based on patient's age to complete this topic Meningococcal ACWY Vaccine Aged Out N o longer eligible based on patient's age to complete this topic Meningococcal B Vaccine Aged Out No l onger eligible based on patient's age to complete this topic Pneumococcal Vaccine: Pediat rics (0 to 5 Years) and At-Risk Patients (6 to 49 Years) Aged Out No longer eligible b ased on patient's age to complete this topic RSV Immunization Patients Un bertha 20 months Aged Out No longer eligible b ased on patient's age to complete this topic Varicella Vaccines Aged Out No longer eligible based on patient's age to complete this topic
== END 2025-05-03 09:44 | disposition home or self-care (01) ==
LOC: HO.XRAY 09:43
PROVIDERS: PCP Nurse Practitioner Primary Care; Visit Provider Urology
DX: N20.0 Calculus of kidney (principal)
CPT/HCPCS: 74018; 99212

== ENCOUNTER → 2025-05-03 10:54 | Outpatient (BNV) | payer MEDICAID, SELFPAY | PROVIDERS: PCP Nurse Practitioner Primary Care; Visit Provider Radiology Diagnostic Radiology | DX: N20.0 Calculus of kidney (principal) | CPT/HCPCS: 74018 ==